=== PATIENT | female | born 1950 | race Caucasian/White ===

== ENCOUNTER 2024-02-08 07:02 | Outpatient (CLI) | payer OTHER | END 2024-02-08 07:07 | disposition home or self-care (01) | LOC: SONOGRAMA 07:02 | PROVIDERS: ATTEND Internal Medicine | DX: N81.0 Urethrocele (principal) ==

== ENCOUNTER 2024-12-31 12:51 | Outpatient (CLI) | payer OTHER ==
[2024-12-31 14:07] LABS: CREATININE SERUM 0.78 mg/dL (0.55-1.02)
== END 2024-12-31 12:56 | disposition home or self-care (01) ==
LOC: LAB 12:51
PROVIDERS: ATTEND Internal Medicine
DX: R10.84 Generalized abdominal pain (principal); R97.0 Elevated carcinoembryonic antigen [CEA]; R97.8 Other abnormal tumor markers

== ENCOUNTER 2025-01-03 07:05 | Outpatient (CLI) | payer OTHER | END 2025-01-03 07:20 | disposition home or self-care (01) | LOC: TOM 07:05 | PROVIDERS: ATTEND Internal Medicine | DX: R10.84 Generalized abdominal pain (principal) | CPT/HCPCS: 74178; Q9965 ==

== ENCOUNTER 2025-01-09 07:07 | Outpatient (CLI) | payer OTHER | END 2025-01-09 07:18 | disposition home or self-care (01) | LOC: MRI 07:07 | PROVIDERS: ATTEND Internal Medicine | DX: C24.9 Malignant neoplasm of biliary tract, unspecified (principal) | CPT/HCPCS: 74181 ==

== ENCOUNTER → 2025-02-06 08:25 | Outpatient (CLI) | payer OTHER | END | disposition home or self-care (01) | LOC: NUCLEAR 08:25 | PROVIDERS: ATTEND Internal Medicine | DX: D16.10 Benign neoplasm of short bones of unspecified upper limb (principal) | CPT/HCPCS: 78315; A9503 ==